=== PATIENT | female | born 1955 | race Caucasian/White ===

== ENCOUNTER 2018-05-14 06:16 | Inpatient (IN) | payer OTHER ==
[2018-05-14 08:49] LABS: ADD MAN DIFF? NO
[2018-05-14 09:04] LABS: BASOPHIL # 0.1 10^3/ul (0.0-0.1); EOSINOPHILS # 0.1 10^3/ul (0.0-0.5); EOSINOPHILS % 1.1 % (0.0-7.0); HEMOGLOBIN 8.5 g/dl (12.0-16.0); LYMPHOCYTES # 2.3 10^3/ul (0.8-2.9); LYMPHOCYTES % 37.1 % (15.0-51.0); MEAN CORPUSCULAR HEMOGLOBIN 34.3 pg (29.0-33.0); MEAN CORPUSCULAR HGB CONC 31.5 g/dl (32.0-37.0); MEAN CORPUSCULAR VOLUME 108.9 fl (82.0-101.0); MEAN PLATELET VOLUME 9.9 fl (7.4-10.4); MONOCYTE # 0.4 10^3/ul (0.3-0.9); NEUTROPHIL # 3.3 10^3/ul (1.6-7.5); NEUTROPHILS % 53.1 % (39.0-77.0); PLATELET COUNT 220 10^3/UL (140-415); RED BLOOD COUNT 2.48 10^6/ul (4.20-5.40); RED CELL DISTRIBUTION WIDTH 16.7 % (11.5-14.5)
[2018-05-14 09:04] LABS: WHITE BLOOD COUNT 6.2 10^3/ul (4.8-10.8)
[2018-05-14 09:21] LABS: ALANINE AMINOTRANSFERASE 26 IU/L (13-69); ALBUMIN 2.9 g/dl (3.3-4.9); ALBUMIN/GLOBULIN RATIO 0.87; ALKALINE PHOSPHATASE 210 IU/L (42-121); ANION GAP 8 (5-13); ASPARTATE AMINO TRANSFERASE 74 IU/L (15-46); BILIRUBIN,INDIRECT 0.2 mg/dl (0-1.1); BILIRUBIN,TOTAL 0.2 mg/dl (0.2-1.3); BLOOD UREA NITROGEN 10 mg/dl (7-20); CALCIUM 9.1 mg/dl (8.4-10.2); CARBON DIOXIDE 30 mmol/L (21-31); CHLORIDE 105 mmol/L (97-110); Estimated GFR 51 mL/min (>60); GLUCOSE 79 mg/dl (70-220); POTASSIUM 3.7 mmol/L (3.5-5.1); SODIUM 143 mmol/L (135-144); TOTAL PROTEIN 6.2 g/dl (6.1-8.1)
[2018-05-14 09:24] LABS: INR 0.89; PROTIME 12.1 Sec (11.9-14.9); PT RATIO 0.9
[2018-05-14] MEDS: SOD CHLORIDE 0.9% 1,000 ML IV (09:24)
[2018-05-14 09:25] LABS: PARTIAL THROMBOPLASTIN TIME 28.7 Sec (23.0-35.0)
[2018-05-14 09:52] LABS: CARCINOEMBRYONIC ANTIGEN 1.6 ng/ml (0.0-5.0)
[2018-05-14] MEDS ORDERED: CEFAZOLIN 2 GM/50 ML (PMX) 50 ML IVPB (12:30)
[2018-05-14] MEDS ORDERED: ROCURONIUM 50 MG INJ (13:27)
[2018-05-14] MEDS ORDERED: CEFAZOLIN 1 GM INJ (13:27)
[2018-05-14] MEDS ORDERED: PROPOFOL 20 ML (13:27)
[2018-05-14] MEDS ORDERED: FUROSEMIDE 20 MG INJ (13:28)
[2018-05-14] MEDS ORDERED: MIDAZOLAM 1 MG/ML 2 ML INJ ×2 (13:28)
[2018-05-14] MEDS ORDERED: MEPERIDINE 25 MG INJ IV (13:30)
[2018-05-14] MEDS ORDERED: DIPHENHYDRAMINE 50 MG INJ IV (13:30)
[2018-05-14] MEDS ORDERED: hydrALAzine 20 MG INJ IV (13:30)
[2018-05-14] MEDS ORDERED: IPRATROPIUM (NEB) 0.5 MG/2.5 ML AMP HHN (13:30)
[2018-05-14] MEDS ORDERED: METOCLOPRAMIDE 10 MG INJ IV (13:30)
[2018-05-14] MEDS ORDERED: FENTAnyl 50 MCG/ML VIAL IV ×2 (13:30)
[2018-05-14] MEDS ORDERED: ONDANSETRON 4 MG INJ IV ×2 (13:30→15:30)
[2018-05-14] MEDS ORDERED: HYDROmorphONE 1 MG/5 ML IV SYRINGE IV ×2 (13:30)
[2018-05-14] MEDS ORDERED: EPHEDrine SULFATE 50 MG/5 ML SYG IV (13:30)
[2018-05-14] MEDS ORDERED: OXYCODONE/ACETAMINOPHEN (5/325) TAB PO (13:30)
[2018-05-14] MEDS ORDERED: LABETALOL HCL 20MG INJ IV (13:30)
[2018-05-14] MEDS ORDERED: ALBUTEROL 0.083% (NEB) 2.5 MG/3 ML AMP HHN (13:30)
[2018-05-14] MEDS: ISOSULFAN BLUE 1% 5 ML INJ SC (13:50)
[2018-05-14] MEDS ORDERED: DEXAMETHASONE 4 MG/ML 5 ML INJ (13:55)
[2018-05-14] MEDS ORDERED: METOCLOPRAMIDE 10 MG INJ (13:55)
[2018-05-14] MEDS ORDERED: KETOROLAC 30 MG INJ (13:55)
[2018-05-14] MEDS ORDERED: ONDANSETRON 4 MG INJ (13:55)
[2018-05-14] MEDS ORDERED: EPHEDrine SULFATE 50 MG/5 ML SYG (14:53)
[2018-05-14] MEDS ORDERED: NEOSTIGMINE 10 MG INJ (15:19)
[2018-05-14] MEDS ORDERED: GLYCOPYRROLATE 0.4 MG INJ (15:19)
[2018-05-14] MEDS ORDERED: ACETAMINOPHEN 1000MG/100ML IV 100 ML IVPB (15:30)
[2018-05-14] MEDS: HYDROmorphONE 1 MG/5 ML IV SYRINGE IV (15:54)
[2018-05-14] MEDS: D5W-0.45 NACL + KCL 20 MEQ 1,000 ML IV (18:00)
[2018-05-14] MEDS: ZOLPIDEM 5 MG TAB PO (22:38)
[2018-05-15] MEDS: D5W-0.45 NACL + KCL 20 MEQ 1,000 ML IV ×3 (04:02→21:58)
[2018-05-15 06:01] LABS: ADD MAN DIFF? NO; BASOPHILS % 0.2 % (0.0-2.0); HEMATOCRIT 22.9 % (37.0-47.0); HEMOGLOBIN 7.2 g/dl (12.0-16.0); LYMPHOCYTES # 0.8 10^3/ul (0.8-2.9); LYMPHOCYTES % 12.9 % (15.0-51.0); MEAN CORPUSCULAR HEMOGLOBIN 35.6 pg (29.0-33.0); MEAN CORPUSCULAR HGB CONC 31.4 g/dl (32.0-37.0); MEAN CORPUSCULAR VOLUME 113.4 fl (82.0-101.0); MEAN PLATELET VOLUME 10.3 fl (7.4-10.4); MONOCYTE # 0.6 10^3/ul (0.3-0.9); MONOCYTES % 8.5 % (0.0-11.0); NEUTROPHILS % 77.8 % (39.0-77.0); PLATELET COUNT 186 10^3/UL (140-415); RED BLOOD COUNT 2.02 10^6/ul (4.20-5.40); RED CELL DISTRIBUTION WIDTH 17.2 % (11.5-14.5)
[2018-05-15 06:01] LABS: WHITE BLOOD COUNT 6.5 10^3/ul (4.8-10.8)
[2018-05-15 06:39] LABS: IRON 31 ug/dl (35-150)
[2018-05-15 06:48] LABS: % IRON SATURATION 30 % SAT (22-52); TOTAL IRON BINDING CAPACITY 105 ug/dl (241-421)
[2018-05-15] MEDS: morphine 2 MG INJ IV ×3 (09:37→20:21)
[2018-05-15] MEDS: CEFAZOLIN 1 GM/50 ML (PMX) 50 ML IVPB ×2 (17:00→23:44)
[2018-05-15] MEDS: ZOLPIDEM 5 MG TAB PO (22:40)
[2018-05-16 06:00] LABS: ADD MAN DIFF? NO
[2018-05-16 06:07] LABS: BASOPHILS % 0.4 % (0.0-2.0); EOSINOPHILS % 0.7 % (0.0-7.0); HEMATOCRIT 23.5 % (37.0-47.0); HEMOGLOBIN 7.3 g/dl (12.0-16.0); LYMPHOCYTES # 1.5 10^3/ul (0.8-2.9); LYMPHOCYTES % 28.2 % (15.0-51.0); MEAN CORPUSCULAR HEMOGLOBIN 35.8 pg (29.0-33.0); MEAN CORPUSCULAR HGB CONC 31.1 g/dl (32.0-37.0); MEAN CORPUSCULAR VOLUME 115.2 fl (82.0-101.0); MEAN PLATELET VOLUME 10.3 fl (7.4-10.4); MONOCYTE # 0.5 10^3/ul (0.3-0.9); MONOCYTES % 8.3 % (0.0-11.0); NEUTROPHIL # 3.4 10^3/ul (1.6-7.5); NEUTROPHILS % 61.8 % (39.0-77.0); PLATELET COUNT 172 10^3/UL (140-415); RED BLOOD COUNT 2.04 10^6/ul (4.20-5.40); RED CELL DISTRIBUTION WIDTH 17.1 % (11.5-14.5)
[2018-05-16 06:07] LABS: WHITE BLOOD COUNT 5.4 10^3/ul (4.8-10.8)
[2018-05-16 06:36] LABS: ANION GAP 6 (5-13); BLOOD UREA NITROGEN 12 mg/dl (7-20); CALCIUM 8.5 mg/dl (8.4-10.2); CARBON DIOXIDE 27 mmol/L (21-31); CHLORIDE 104 mmol/L (97-110); CREATININE 1.29 mg/dl (0.44-1.00); Estimated GFR 42 mL/min (>60); GLUCOSE 75 mg/dl (70-220); POTASSIUM 4.9 mmol/L (3.5-5.1); SODIUM 137 mmol/L (135-144)
[2018-05-16] MEDS: D5W-0.45 NACL + KCL 20 MEQ 1,000 ML IV ×4 (07:10→21:00)
[2018-05-16] MEDS: morphine 2 MG INJ IV ×2 (08:35→11:40)
[2018-05-16] MEDS: CEFAZOLIN 1 GM/50 ML (PMX) 50 ML IVPB ×3 (08:35→23:42)
[2018-05-16] MEDS: HYDROCODONE/APAP (5/325) TAB PO ×2 (16:16→20:30)
[2018-05-16] MEDS: ZOLPIDEM 5 MG TAB PO (21:43)
[2018-05-17] MEDS: HYDROCODONE/APAP (5/325) TAB PO ×6 (00:39→20:38)
[2018-05-17] MEDS: D5W-0.45 NACL + KCL 20 MEQ 1,000 ML IV ×4 (02:42→21:46)
[2018-05-17 06:10] LABS: ADD MAN DIFF? NO
[2018-05-17 06:14] LABS: WHITE BLOOD COUNT 4.3 10^3/ul (4.8-10.8)
[2018-05-17 06:14] LABS: BASOPHIL # 0.1 10^3/ul (0.0-0.1); BASOPHILS % 1.2 % (0.0-2.0); EOSINOPHILS # 0.1 10^3/ul (0.0-0.5); EOSINOPHILS % 1.9 % (0.0-7.0); HEMATOCRIT 23.6 % (37.0-47.0); LYMPHOCYTES # 1.5 10^3/ul (0.8-2.9); LYMPHOCYTES % 35.2 % (15.0-51.0); MEAN CORPUSCULAR HGB CONC 29.7 g/dl (32.0-37.0); MEAN CORPUSCULAR VOLUME 114.6 fl (82.0-101.0); MEAN PLATELET VOLUME 10.4 fl (7.4-10.4); MONOCYTE # 0.4 10^3/ul (0.3-0.9); MONOCYTES % 9.8 % (0.0-11.0); NEUTROPHIL # 2.2 10^3/ul (1.6-7.5); NEUTROPHILS % 51.2 % (39.0-77.0); PLATELET COUNT 154 10^3/UL (140-415); RED BLOOD COUNT 2.06 10^6/ul (4.20-5.40); RED CELL DISTRIBUTION WIDTH 16.3 % (11.5-14.5)
[2018-05-17 06:54] LABS: ANION GAP 3 (5-13); BLOOD UREA NITROGEN 10 mg/dl (7-20); CALCIUM 8.3 mg/dl (8.4-10.2); CARBON DIOXIDE 26 mmol/L (21-31); CHLORIDE 108 mmol/L (97-110); CREATININE 1.07 mg/dl (0.44-1.00); Estimated GFR 52 mL/min (>60); GLUCOSE 75 mg/dl (70-220); POTASSIUM 5.1 mmol/L (3.5-5.1); SODIUM 137 mmol/L (135-144)
[2018-05-17] MEDS: CEFAZOLIN 1 GM/50 ML (PMX) 50 ML IVPB ×3 (08:40→23:20)
[2018-05-17] MEDS: ZOLPIDEM 5 MG TAB PO (23:16)
[2018-05-18] MEDS: HYDROCODONE/APAP (5/325) TAB PO ×6 (01:58→23:25)
[2018-05-18] MEDS: D5W-0.45 NACL + KCL 20 MEQ 1,000 ML IV ×3 (05:00→21:00)
[2018-05-18] MEDS: CEFAZOLIN 1 GM/50 ML (PMX) 50 ML IVPB ×3 (08:54→19:49)
[2018-05-18] MEDS: LORAZEPAM 0.5 MG TAB PO (15:21)
[2018-05-18 15:59] LABS: IMMEDIATE SPIN CROSSMATCH 1 1
[2018-05-18] MEDS: MAGNESIUM HYDROXIDE 30ML CUP PO (19:28)
[2018-05-18] MEDS: AMLODIPINE 10 MG TAB PO (19:40)
[2018-05-18 20:17] LABS: ADD MAN DIFF? NO
[2018-05-18 20:18] LABS: WHITE BLOOD COUNT 4.1 10^3/ul (4.8-10.8)
[2018-05-18 20:18] LABS: EOSINOPHILS # 0.1 10^3/ul (0.0-0.5); EOSINOPHILS % 1.7 % (0.0-7.0); HEMATOCRIT 29.9 % (37.0-47.0); HEMOGLOBIN 9.4 g/dl (12.0-16.0); LYMPHOCYTES # 1.5 10^3/ul (0.8-2.9); LYMPHOCYTES % 35.1 % (15.0-51.0); MEAN CORPUSCULAR HEMOGLOBIN 33.9 pg (29.0-33.0); MEAN CORPUSCULAR HGB CONC 31.4 g/dl (32.0-37.0); MEAN CORPUSCULAR VOLUME 107.9 fl (82.0-101.0); MEAN PLATELET VOLUME 9.8 fl (7.4-10.4); MONOCYTE # 0.5 10^3/ul (0.3-0.9); MONOCYTES % 10.9 % (0.0-11.0); NEUTROPHIL # 2.1 10^3/ul (1.6-7.5); NEUTROPHILS % 50.8 % (39.0-77.0); PLATELET COUNT 212 10^3/UL (140-415); RED BLOOD COUNT 2.77 10^6/ul (4.20-5.40); RED CELL DISTRIBUTION WIDTH 19.2 % (11.5-14.5)
[2018-05-18] MEDS: DOCUSATE SODIUM 100 MG CAP PO (20:41)
[2018-05-18] MEDS: ZOLPIDEM 5 MG TAB PO (23:25)
[2018-05-19] MEDS: D5W-0.45 NACL + KCL 20 MEQ 1,000 ML IV ×5 (02:24→21:27)
[2018-05-19] MEDS: HYDROCODONE/APAP (5/325) TAB PO ×5 (04:02→20:20)
[2018-05-19] MEDS: CEFAZOLIN 1 GM/50 ML (PMX) 50 ML IVPB ×3 (04:05→21:27)
[2018-05-19 06:16] LABS: ADD MAN DIFF? NO
[2018-05-19 06:26] LABS: BASOPHILS % 0.8 % (0.0-2.0); EOSINOPHILS # 0.1 10^3/ul (0.0-0.5); HEMATOCRIT 31.9 % (37.0-47.0); LYMPHOCYTES # 1.2 10^3/ul (0.8-2.9); LYMPHOCYTES % 24.6 % (15.0-51.0); MEAN CORPUSCULAR HEMOGLOBIN 34.2 pg (29.0-33.0); MEAN CORPUSCULAR HGB CONC 31.3 g/dl (32.0-37.0); MEAN CORPUSCULAR VOLUME 109.2 fl (82.0-101.0); MEAN PLATELET VOLUME 10.1 fl (7.4-10.4); MONOCYTE # 0.5 10^3/ul (0.3-0.9); NEUTROPHIL # 3.1 10^3/ul (1.6-7.5); PLATELET COUNT 240 10^3/UL (140-415); RED BLOOD COUNT 2.92 10^6/ul (4.20-5.40); RED CELL DISTRIBUTION WIDTH 19.8 % (11.5-14.5)
[2018-05-19 06:53] LABS: ANION GAP 4 (5-13); BLOOD UREA NITROGEN 8 mg/dl (7-20); CALCIUM 8.7 mg/dl (8.4-10.2); CARBON DIOXIDE 23 mmol/L (21-31); CHLORIDE 112 mmol/L (97-110); Estimated GFR > 60 mL/min (>60); GLUCOSE 82 mg/dl (70-220); SODIUM 139 mmol/L (135-144)
[2018-05-19 06:59] LABS: POTASSIUM 5.6 mmol/L (3.5-5.1)
[2018-05-19] MEDS: AMLODIPINE 10 MG TAB PO (08:29)
[2018-05-19] MEDS: DOCUSATE SODIUM 100 MG CAP PO (20:19)
[2018-05-19] MEDS: ZOLPIDEM 5 MG TAB PO (21:27)
[2018-05-20] MEDS: HYDROCODONE/APAP (5/325) TAB PO ×5 (02:08→20:37)
[2018-05-20 05:56] LABS: ADD MAN DIFF? NO
[2018-05-20 06:05] LABS: RETICULOCYTE RBC 2.66
[2018-05-20 06:05] LABS: BASOPHILS % 0.8 % (0.0-2.0); EOSINOPHILS # 0.1 10^3/ul (0.0-0.5); EOSINOPHILS % 2.3 % (0.0-7.0); HEMATOCRIT 29.6 % (37.0-47.0); HEMOGLOBIN 9.2 g/dl (12.0-16.0); LYMPHOCYTES # 1.2 10^3/ul (0.8-2.9); LYMPHOCYTES % 29.5 % (15.0-51.0); MEAN CORPUSCULAR HEMOGLOBIN 34.5 pg (29.0-33.0); MEAN CORPUSCULAR HGB CONC 31.1 g/dl (32.0-37.0); MEAN CORPUSCULAR VOLUME 110.9 fl (82.0-101.0); MEAN PLATELET VOLUME 10.1 fl (7.4-10.4); MONOCYTE # 0.5 10^3/ul (0.3-0.9); MONOCYTES % 11.5 % (0.0-11.0); NEUTROPHIL # 2.2 10^3/ul (1.6-7.5); NEUTROPHILS % 55.4 % (39.0-77.0); PLATELET COUNT 210 10^3/UL (140-415); RED BLOOD COUNT 2.67 10^6/ul (4.20-5.40); RED CELL DISTRIBUTION WIDTH 18.6 % (11.5-14.5); RETICULOCYTE COUNT % 5.3 % (0.5-1.5)
[2018-05-20] MEDS: CEFAZOLIN 1 GM/50 ML (PMX) 50 ML IVPB ×3 (06:27→21:47)
[2018-05-20 06:28] LABS: ANION GAP 0 (5-13); BLOOD UREA NITROGEN 8 mg/dl (7-20); CALCIUM 8.6 mg/dl (8.4-10.2); CARBON DIOXIDE 24 mmol/L (21-31); CHLORIDE 113 mmol/L (97-110); CREATININE 0.89 mg/dl (0.44-1.00); Estimated GFR > 60 mL/min (>60); GLUCOSE 74 mg/dl (70-220); POTASSIUM 5.9 mmol/L (3.5-5.1); SODIUM 137 mmol/L (135-144)
[2018-05-20] MEDS: AMLODIPINE 10 MG TAB PO (09:26)
[2018-05-20] MEDS: NA POLYST SULFON 15 GM/60 ML BTL PO (13:00)
[2018-05-20 14:12] LABS: OCCULT BLOOD STOOL NEGATIVE (NEGATIVE)
[2018-05-20] MEDS: BISACODYL (EC) 5 MG TAB PO ×2 (14:37→21:47)
[2018-05-20] MEDS: PEG/ELECTROLYTES 4L BTL PO ×2 (16:08→20:37)
[2018-05-20] MEDS: DOCUSATE SODIUM 100 MG CAP PO (20:36)
[2018-05-20] MEDS: ZOLPIDEM 5 MG TAB PO (23:24)
[2018-05-21] MEDS: HYDROCODONE/APAP (5/325) TAB PO ×3 (05:30→19:26)
[2018-05-21] MEDS: CEFAZOLIN 1 GM/50 ML (PMX) 50 ML IVPB ×3 (05:30→21:41)
[2018-05-21 05:35] LABS: ADD MAN DIFF? NO
[2018-05-21 05:40] LABS: WHITE BLOOD COUNT 3.8 10^3/ul (4.8-10.8)
[2018-05-21 05:40] LABS: BASOPHILS % 0.8 % (0.0-2.0); EOSINOPHILS # 0.1 10^3/ul (0.0-0.5); EOSINOPHILS % 1.6 % (0.0-7.0); HEMATOCRIT 29.1 % (37.0-47.0); HEMOGLOBIN 9.1 g/dl (12.0-16.0); LYMPHOCYTES # 1.3 10^3/ul (0.8-2.9); LYMPHOCYTES % 33.4 % (15.0-51.0); MEAN CORPUSCULAR HEMOGLOBIN 34.2 pg (29.0-33.0); MEAN CORPUSCULAR HGB CONC 31.3 g/dl (32.0-37.0); MEAN CORPUSCULAR VOLUME 109.4 fl (82.0-101.0); MONOCYTE # 0.4 10^3/ul (0.3-0.9); MONOCYTES % 11.6 % (0.0-11.0); NEUTROPHILS % 52.1 % (39.0-77.0); PLATELET COUNT 186 10^3/UL (140-415); RED BLOOD COUNT 2.66 10^6/ul (4.20-5.40); RED CELL DISTRIBUTION WIDTH 17.7 % (11.5-14.5)
[2018-05-21 06:01] LABS: ANION GAP 4 (5-13); BLOOD UREA NITROGEN 8 mg/dl (7-20); CALCIUM 8.7 mg/dl (8.4-10.2); CARBON DIOXIDE 23 mmol/L (21-31); CHLORIDE 114 mmol/L (97-110); Estimated GFR > 60 mL/min (>60); GLUCOSE 76 mg/dl (70-220); POTASSIUM 4.2 mmol/L (3.5-5.1); SODIUM 141 mmol/L (135-144)
[2018-05-21] MEDS: AMLODIPINE 10 MG TAB PO (09:00)
[2018-05-21] MEDS: LIDOCAINE 2% (SDV) 5 ML INJ (12:34)
[2018-05-21] MEDS: MIDAZOLAM 1 MG/ML 2 ML INJ (12:34)
[2018-05-21] MEDS: PROPOFOL 20 ML ×3 (12:34→12:58)
[2018-05-21] MEDS: DOCUSATE SODIUM 100 MG CAP PO (21:07)
[2018-05-22] MEDS: ZOLPIDEM 5 MG TAB PO ×2 (00:59→20:56)
[2018-05-22] MEDS: HYDROCODONE/APAP (5/325) TAB PO ×4 (02:52→16:42)
[2018-05-22] MEDS: CEFAZOLIN 1 GM/50 ML (PMX) 50 ML IVPB ×3 (05:47→20:56)
[2018-05-22] MEDS: AMLODIPINE 10 MG TAB PO (08:39)
[2018-05-22] MEDS: DOCUSATE SODIUM 100 MG CAP PO (20:56)
[2018-05-23] MEDS: HYDROCODONE/APAP (5/325) TAB PO ×4 (02:24→19:28)
[2018-05-23] MEDS: CEFAZOLIN 1 GM/50 ML (PMX) 50 ML IVPB ×3 (06:23→21:58)
[2018-05-23 06:39] LABS: ADD MAN DIFF? NO
[2018-05-23 06:42] LABS: BASOPHILS % 0.6 % (0.0-2.0); EOSINOPHILS # 0.1 10^3/ul (0.0-0.5); EOSINOPHILS % 1.7 % (0.0-7.0); HEMATOCRIT 26.8 % (37.0-47.0); HEMOGLOBIN 8.6 g/dl (12.0-16.0); LYMPHOCYTES # 1.3 10^3/ul (0.8-2.9); LYMPHOCYTES % 36.4 % (15.0-51.0); MEAN CORPUSCULAR HEMOGLOBIN 34.5 pg (29.0-33.0); MEAN CORPUSCULAR HGB CONC 32.1 g/dl (32.0-37.0); MEAN CORPUSCULAR VOLUME 107.6 fl (82.0-101.0); MEAN PLATELET VOLUME 9.9 fl (7.4-10.4); MONOCYTE # 0.4 10^3/ul (0.3-0.9); MONOCYTES % 10.2 % (0.0-11.0); NEUTROPHIL # 1.7 10^3/ul (1.6-7.5); NEUTROPHILS % 50.5 % (39.0-77.0); PLATELET COUNT 168 10^3/UL (140-415); RED BLOOD COUNT 2.49 10^6/ul (4.20-5.40); RED CELL DISTRIBUTION WIDTH 16.7 % (11.5-14.5)
[2018-05-23 06:42] LABS: WHITE BLOOD COUNT 3.4 10^3/ul (4.8-10.8)
[2018-05-23 07:09] LABS: ANION GAP 5 (5-13); BLOOD UREA NITROGEN 9 mg/dl (7-20); CALCIUM 8.4 mg/dl (8.4-10.2); CARBON DIOXIDE 22 mmol/L (21-31); CHLORIDE 113 mmol/L (97-110); CREATININE 0.94 mg/dl (0.44-1.00); Estimated GFR > 60 mL/min (>60); GLUCOSE 72 mg/dl (70-220); POTASSIUM 3.7 mmol/L (3.5-5.1); SODIUM 140 mmol/L (135-144)
[2018-05-23] MEDS: NICOTINE (14 MG/24 HR) PATCH TRANSDERM (09:38)
[2018-05-23] MEDS: AMLODIPINE 10 MG TAB PO (09:38)
[2018-05-23] MEDS: DOCUSATE SODIUM 100 MG CAP PO (21:58)
[2018-05-23] MEDS: ZOLPIDEM 5 MG TAB PO (21:58)
[2018-05-24] MEDS: CEFAZOLIN 1 GM/50 ML (PMX) 50 ML IVPB ×3 (05:21→21:36)
[2018-05-24] MEDS: HYDROCODONE/APAP (5/325) TAB PO ×5 (05:21→21:37)
[2018-05-24 06:01] LABS: WHITE BLOOD COUNT 6.1 10^3/ul (4.8-10.8)
[2018-05-24 06:01] LABS: ADD MAN DIFF? NO; BASOPHIL # 0.1 10^3/ul (0.0-0.1); EOSINOPHILS # 0.1 10^3/ul (0.0-0.5); EOSINOPHILS % 1.8 % (0.0-7.0); HEMATOCRIT 32.7 % (37.0-47.0); HEMOGLOBIN 10.4 g/dl (12.0-16.0); LYMPHOCYTES # 1.8 10^3/ul (0.8-2.9); LYMPHOCYTES % 29.4 % (15.0-51.0); MEAN CORPUSCULAR HEMOGLOBIN 34.3 pg (29.0-33.0); MEAN CORPUSCULAR HGB CONC 31.8 g/dl (32.0-37.0); MEAN CORPUSCULAR VOLUME 107.9 fl (82.0-101.0); MONOCYTE # 0.5 10^3/ul (0.3-0.9); MONOCYTES % 8.8 % (0.0-11.0); NEUTROPHIL # 3.6 10^3/ul (1.6-7.5); NEUTROPHILS % 58.7 % (39.0-77.0); PLATELET COUNT 229 10^3/UL (140-415); RED BLOOD COUNT 3.03 10^6/ul (4.20-5.40); RED CELL DISTRIBUTION WIDTH 16.3 % (11.5-14.5)
[2018-05-24 06:44] LABS: ANION GAP 7 (5-13); BLOOD UREA NITROGEN 9 mg/dl (7-20); CALCIUM 8.8 mg/dl (8.4-10.2); CARBON DIOXIDE 22 mmol/L (21-31); CHLORIDE 110 mmol/L (97-110); CREATININE 0.93 mg/dl (0.44-1.00); Estimated GFR > 60 mL/min (>60); GLUCOSE 80 mg/dl (70-220); POTASSIUM 3.8 mmol/L (3.5-5.1); SODIUM 139 mmol/L (135-144)
[2018-05-24] MEDS: NICOTINE (14 MG/24 HR) PATCH TRANSDERM (09:05)
[2018-05-24] MEDS: AMLODIPINE 10 MG TAB PO (09:06)
[2018-05-24] MEDS: DOCUSATE SODIUM 100 MG CAP PO (21:37)
[2018-05-24] MEDS: ZOLPIDEM 5 MG TAB PO (22:48)
[2018-05-25] MEDS: HYDROCODONE/APAP (5/325) TAB PO ×5 (02:36→18:32)
[2018-05-25] MEDS: CEFAZOLIN 1 GM/50 ML (PMX) 50 ML IVPB ×3 (05:41→22:02)
[2018-05-25 06:12] LABS: ADD MAN DIFF? NO
[2018-05-25 06:37] LABS: WHITE BLOOD COUNT 4.3 10^3/ul (4.8-10.8)
[2018-05-25 06:37] LABS: BASOPHILS % 0.9 % (0.0-2.0); EOSINOPHILS # 0.1 10^3/ul (0.0-0.5); EOSINOPHILS % 1.9 % (0.0-7.0); HEMATOCRIT 27.4 % (37.0-47.0); HEMOGLOBIN 8.8 g/dl (12.0-16.0); LYMPHOCYTES # 1.4 10^3/ul (0.8-2.9); LYMPHOCYTES % 32.5 % (15.0-51.0); MEAN CORPUSCULAR HEMOGLOBIN 34.9 pg (29.0-33.0); MEAN CORPUSCULAR HGB CONC 32.1 g/dl (32.0-37.0); MEAN CORPUSCULAR VOLUME 108.7 fl (82.0-101.0); MEAN PLATELET VOLUME 10.2 fl (7.4-10.4); MONOCYTE # 0.4 10^3/ul (0.3-0.9); MONOCYTES % 10.4 % (0.0-11.0); NEUTROPHIL # 2.3 10^3/ul (1.6-7.5); NEUTROPHILS % 53.8 % (39.0-77.0); PLATELET COUNT 164 10^3/UL (140-415); RED BLOOD COUNT 2.52 10^6/ul (4.20-5.40); RED CELL DISTRIBUTION WIDTH 16.2 % (11.5-14.5)
[2018-05-25] MEDS: AMLODIPINE 10 MG TAB PO (08:33)
[2018-05-25] MEDS: NICOTINE (14 MG/24 HR) PATCH TRANSDERM (08:37)
[2018-05-25] MEDS: SOD FERRIC GLUC COMPLX 125 MG in SOD CHLORIDE 0.9% 100 ML IVPB (15:10)
[2018-05-25] MEDS: ZOLPIDEM 5 MG TAB PO (22:01)
[2018-05-25] MEDS: DOCUSATE SODIUM 100 MG CAP PO (22:02)
[2018-05-26] MEDS: HYDROCODONE/APAP (5/325) TAB PO ×4 (02:07→15:18)
[2018-05-26] MEDS: CEFAZOLIN 1 GM/50 ML (PMX) 50 ML IVPB (05:32)
[2018-05-26 05:49] LABS: ADD MAN DIFF? NO
[2018-05-26 05:57] LABS: BASOPHILS % 0.7 % (0.0-2.0); EOSINOPHILS # 0.1 10^3/ul (0.0-0.5); EOSINOPHILS % 1.1 % (0.0-7.0); HEMATOCRIT 27.8 % (37.0-47.0); HEMOGLOBIN 8.9 g/dl (12.0-16.0); LYMPHOCYTES # 1.3 10^3/ul (0.8-2.9); LYMPHOCYTES % 21.2 % (15.0-51.0); MEAN CORPUSCULAR HEMOGLOBIN 34.9 pg (29.0-33.0); MONOCYTE # 0.5 10^3/ul (0.3-0.9); MONOCYTES % 8.3 % (0.0-11.0); NEUTROPHIL # 4.2 10^3/ul (1.6-7.5); NEUTROPHILS % 68.4 % (39.0-77.0); PLATELET COUNT 169 10^3/UL (140-415); RED BLOOD COUNT 2.55 10^6/ul (4.20-5.40); RED CELL DISTRIBUTION WIDTH 16.3 % (11.5-14.5)
[2018-05-26 05:57] LABS: WHITE BLOOD COUNT 6.1 10^3/ul (4.8-10.8)
[2018-05-26 06:45] LABS: ALANINE AMINOTRANSFERASE 12 IU/L (13-69); ALBUMIN 1.8 g/dl (3.3-4.9); ALBUMIN/GLOBULIN RATIO 0.75; ALKALINE PHOSPHATASE 137 IU/L (42-121); ANION GAP 5 (5-13); ASPARTATE AMINO TRANSFERASE 27 IU/L (15-46); BILIRUBIN,INDIRECT 0.1 mg/dl (0-1.1); BILIRUBIN,TOTAL 0.1 mg/dl (0.2-1.3); BLOOD UREA NITROGEN 12 mg/dl (7-20); CALCIUM 8.3 mg/dl (8.4-10.2); CARBON DIOXIDE 22 mmol/L (21-31); CHLORIDE 112 mmol/L (97-110); CREATININE 0.93 mg/dl (0.44-1.00); Estimated GFR > 60 mL/min (>60); GLUCOSE 74 mg/dl (70-220); POTASSIUM 3.9 mmol/L (3.5-5.1); SODIUM 139 mmol/L (135-144); TOTAL PROTEIN 4.2 g/dl (6.1-8.1)
[2018-05-26] MEDS: NICOTINE (14 MG/24 HR) PATCH TRANSDERM (08:08)
[2018-05-26] MEDS: AMLODIPINE 10 MG TAB PO (08:09)
[2018-05-26] MEDS: SOD FERRIC GLUC COMPLX 125 MG in SOD CHLORIDE 0.9% 100 ML IVPB (13:18)
== END 2018-05-26 16:15 | disposition home health service (06) | DRG 571 ==
LOC: REC 06:16 → 2NE 17:15
PROC: 0HBV0ZZ Excision of Bilateral Breast, Open Approach (ICD-10-PCS; principal; 2018-05-14 13:22)
PROC: 0JB60ZZ Excision of Chest Subcutaneous Tissue and Fascia, Open Approach (ICD-10-PCS; 2018-05-14 13:22)
PROC: 07B60ZX Excision of Left Axillary Lymphatic, Open Approach, Diagnostic (ICD-10-PCS; 2018-05-14 13:22)
PROC: 07B50ZX Excision of Right Axillary Lymphatic, Open Approach, Diagnostic (ICD-10-PCS; 2018-05-14 13:22)
PROC: 30233N1 Transfusion of Nonautologous Red Blood Cells into Peripheral Vein, Percutaneous Approach (ICD-10-PCS; 2018-05-14 13:22)
PROC: 0DBH8ZX Excision of Cecum, Via Natural or Artificial Opening Endoscopic, Diagnostic (ICD-10-PCS; 2018-05-14 13:22)
PROC: 0DBP8ZX Excision of Rectum, Via Natural or Artificial Opening Endoscopic, Diagnostic (ICD-10-PCS; 2018-05-14 13:22)
DX: C50.911 Malignant neoplasm of unspecified site of right female breast (principal); D62 Acute posthemorrhagic anemia; N17.9 Acute kidney failure, unspecified; C50.912 Malignant neoplasm of unspecified site of left female breast; I10 Essential (primary) hypertension; Z87.891 Personal history of nicotine dependence; J44.9 Chronic obstructive pulmonary disease, unspecified; D53.9 Nutritional anemia, unspecified; D36.7 Benign neoplasm of other specified sites; Z80.0 Family history of malignant neoplasm of digestive organs; D12.0 Benign neoplasm of cecum; K57.30 Diverticulosis of large intestine without perforation or abscess without bleeding; D12.8 Benign neoplasm of rectum
CPT/HCPCS: 36430; 71045; 76705; 80048; 80053; 82270; 82378; 82607; 82728; 82746; 83540; 84443; 85025; 85045; 85610; 85730; 86850; 86900; 86901; 86920; 88305; 88307; 93005; 97116; 97162; 97530